=== PATIENT | male | born 1965 | race Two or more races ===

== ENCOUNTER 2025-03-27 18:44 | Observation (INO) | payer MEDICAID, SELFPAY ==
[2025-03-27 18:45] VITALS: BMI 30.8
[2025-03-27 20:31] VITALS: BP 129/88; PULSE 75; RESP 16; TEMP 37.3; O2SAT 97
--- NOTE | 2025-03-27 20:37 | XR_ITS ---
Examination: CT abdomen with intravenous contrast CT pelvis with intravenous contrast 2-D coronal reconstructions 2-D sagittal reconstructions Date and time of exam:March 27, 2025 10:25 PM INDICATIONS: Left lower abdominal pain radiating to the back beginning this morning CTDI: vol (mGy) 8.86 DLP: (mGycm) 574 Technique: Multiple axial sections of the abdomen and pelvis have been obtained. 64 slice high-resolution scanner used. 3 mm axial sections have been obtained, post intravenous injection 30 cc Isovue 300 2-D sagittal, coronal reconstructions obtained. Low dose protocols were performed. One or more of the following dose reduction techniques were used; automated exposure control, adjustment of the mA and/or KV according to patient size, use of iterative reconstruction technique. Findings: Fatty infiltration throughout the liver, no focal liver or splenic lesions Cholelithiasis No pancreatic or adrenal mass Mild left hydronephrosis secondary to 2 mm distal left ureterovesical junction calculus No bladder mass or bladder calculi. Normal appendix The osseous structures are intact Impression: Cholelithiasis Mild left hydronephrosis secondary to 2 mm distal left ureteral vesicle junction calculus
--- NOTE | 2025-03-27 20:38 | PD.EDRME ---
Rapid Medical Screening Exam REPLACED BY [facility] Arrival date/time: 03/27/25 18:44 59M with no significant PMH presents to ED with 2 days of sudden LLQ pain that radiates to back and N/V. Patient denies dysuria/hematuria and diarrhea. Patient has not had a kidney stone before. Chief Complaint: Abdominal Pain Time Seen by Provider: 03/27/25 20:36 Vital signs: Vital Signs Temperature 99.2 F 03/27/25 20:31 Pulse Rate 75 03/27/25 20:31 Respiratory Rate 16 03/27/25 20:31 Blood Pressure 129/88 H 03/27/25 20:31 Pulse Oximetry (%) 97 03/27/25 20:31 Oxygen Delivery Method Room Air 03/27/25 20:31
[2025-03-27] MEDS: KETOROLAC INJ 30 MG/ML VIAL IVP (20:57)
[2025-03-27] MEDS: ONDANSETRON INJ 2 MG/ML INJ 2 ML 4 MG IV (20:58)
[2025-03-27 21:15] LABS: Collection Type, Urine Clean Catch; Lactate (Lactic Acid) 1.5 mMol/L (0.4-2.0); Squamous Epithelial Cell,Urine 0 /hpf (0-5)
[2025-03-27 21:16] LABS: Basophils # (Auto) 0.1 Thou/mm3 (0.0-0.2); Basophils % (Auto) 1 % (0-2.5); Eosinophils # (Auto) 0.1 Thou/mm3 (0.0-0.5); Eosinophils % (Auto) 1 % (0-10); Hematocrit 42.2 % (41.0-53.0); Hemoglobin 14.8 g/dL (13.5-16.0); Immature Granulocytes % (Auto) 0 % (0-0); Immature Granulocytes Auto 0.04 Thou/mm3 (0.00-0.00); Lymphocytes # (Auto) 2.6 Thou/mm3 (1.0-4.8); Lymphocytes % (Auto) 19 % (10-50); Mean Corpuscular HGB Conc 35.1 g/dl (31.0-37.0); Mean Corpuscular Hemoglobin 31.1 pg (25.0-35.0); Mean Corpuscular Volume 89 fL (80-100); Monocytes % (Auto) 7 % (0-12); Neutrophils # (Auto) 9.7 Thou/mm3 (1.8-7.7); Neutrophils % (Auto) 71 % (37-80); Nucleated Red Blood Cell % 0 /100 WBC (0); Platelet Count 266 Thou/mm3 (140-440); RDW Standard Deviation 42.9 fL (35.1-43.9); Red Blood Count 4.76 Miln/mm3 (4.50-5.90); White Blood Count 13.5 Thou/mm3 (3.8-10.6)
[2025-03-27 21:18] LABS: Bilirubin,Urine Negative (Negative); Blood,Urine Negative (Negative); Clarity,Urine Clear (Clear/Hazy); Color,Urine Lt-Yellow (Lt Yel-Yel); Culture Indicated,Urine Not Indicated; Glucose, Urine Negative (Negative); Ketones,Urine Negative (Negative); Leukocyte Esterase,Urine Negative (Negative); Nitrite,Urine Negative (Negative); PH,Urine 5.5 (5.0-7.0); Protein,Urine Negative (Neg - Trace); RBC,Urine 2 /hpf (0-3); Specific Gravity,Urine 1.023 (1.001-1.035); Urobilinogen,Urine Negative mg/dL (0.0-1.0); WBC,Urine 2 /hpf (0-5)
--- NOTE | 2025-03-27 21:34 | EDNOTE_ITS ---
ED Abdominal Pain RME/HPI General Chief Complaint: Abdominal Pain Stated complaint: PAIN LLQ ABD RADIATING TO BACK SINCE THIS AM Time seen by provider: 03/27/25 20:36 Arrival date/time: 03/27/25 18:44 Patient is a 59-year-old male with a history of hypertension. He is here today with left sided abdominal pain worse in the left lower quadrant that developed this morning. He has nausea but no vomiting. He has no changes in stool. He states he has not had this before. He has no past surgical history. He denies any flank pain or dysuria. He has no urinary complaints. He has had no falls or injuries. He has had no near syncopal episodes. His last meal was breakfast this morning. He has no other acute complaints. Source: patient and family Mode of arrival: ambulatory Limitations: no limitations RME / HPI RME / HPI narrative: 03/27/25 18:44 59M with no significant PMH presents to ED with 2 days of sudden LLQ pain that radiates to back and N/V. Patient denies dysuria/hematuria and diarrhea. Patient has not had a kidney stone before. Related Data Previous Rx's ?Medication ?Instructions ?Recorded tamsulosin 0.4 mg capsule (Flomax) 0.4 mg PO QDAY #30 caps 03/27/25 Allergies Allergy/AdvReac Type Severity Reaction Status Date / Time No Known Allergies Allergy Verified 03/27/25 18:47 Review of Systems Review of Systems Systems Reviewed: All systems reviewed, normal except as documented ED Exam General Limitations: Present no limitations General appearance: Present alert and in distress Head Head exam: Present atraumatic Eye Eye exam: Present normal appearance, PERRL and EOMI ENT ENT exam: Present normal exam, normal oropharynx and mucous membranes moist Neck Neck exam: Present normal inspection, full ROM and trachea midline Chest Chest inspection: Present normal inspection and symmetric chest wall rise Respiratory Respiratory exam: Present normal lung sounds bilaterally Cardiovascular Cardiovascular exam: Present regular rate, normal rhythm and normal heart sounds Abdominal Exam Abdominal exam: Present soft, distention, tenderness, normal bowel sounds and o ther (Diffuse tympany); Absent guarding or rebound Extremities Exam Extremities exam: Present normal inspection and full ROM Back Exam Back exam: Present normal inspection and full ROM Neurological Exam Neurological exam: Present alert, oriented X3 and CN II-XII intact Psychiatric Psychiatric exam: Present normal affect and normal mood Skin Skin exam: Present warm, dry, intact and normal color Course Quality Measures none (But if) Orders Category Date Time Status CT Screening NOW Care 03/27/25 20:37 Active Insert IV NOW Care 03/27/25 20:[address] abdomen pelvis w con Stat Exams 03/27/25 20:37 Completed CBC Stat Lab 03/27/25 21:03 Completed CMP [Comprehensive Metabolic Panel] Stat Lab 03/27/25 21:03 Completed Lactate (Lactic Acid) Stat Lab 03/27/25 21:03 Completed Lipase Stat Lab 03/27/25 21:03 Completed Procalcitonin Stat Lab 03/27/25 21:03 Completed Urinalysis, C/S if Indicated Stat Lab 03/27/25 21:03 Completed Ketorolac Inj [Toradol Inj] Med 03/27/25 20:37 Discontinued 30 mg IVP X1 ONE Morphine Inj Med 03/27/25 21:33 Discontinued 4 mg IVP X1 ONE Ondansetron Inj [Zofran Inj] Med 03/27/25 20:37 Discontinued 4 mg IV X1 ONE Sodium Chloride 0.9% 1000 ml [Ns] 1,000 ml Med 03/27/25 23:03 Active IV 999 mls/hr Sodium Chloride 0.9% 1000 ml [Ns] 1,000 ml Med 03/27/25 23:26 Ordered IV 999 mls/hr Tamsulosin HCl [Flomax] Med 03/27/25 23:29 Once 0.4 mg PO X1 ONE Vital Signs Vital signs: Vital Signs Temperature 99.2 F 03/27/25 20:31 Pulse Rate 75 03/27/25 20:31 Respiratory Rate 16 03/27/25 20:31 Blood Pressure 129/88 H 03/27/25 20:31 Pulse Oximetry (%) 97 03/27/25 20:31 Oxygen Delivery Method Room Air 03/27/25 20:31 Abdominal Pain MDM MDM Narrative MDM Narrative:: Patient is a 59-year-old male who is here today for a 1 day history of left side abdominal pain and left lower quadrant pain. He has nausea but no vomiting. No urinary complaints. He is uncomfortable. But nontoxic-appearing on exam. Vital signs remained stable The ER course. Workup reveals a mild leukocytosis at 13,000 and a RODNEY with creatinine 1.9. CT abdomen pelvis was obtained which reveals a left-sided 2 m, ureter stone near the UVJ. Patient received single bolus of fluids. After results were obtained, a second bolus of fluids were requested in addition to Flomax. His pain has been controlled here with Toradol and morphine. At shift change, patient signed out to attending ER physician who will monitor the patient's creatinine to consider discharge versus admission. So Patient data External records reviewed:: None Clinical information provided by:: patient and family Social determinants that could affect healthcare access:: none Patient has the following chronic illnesses:: HTN How is presenting disease/condition affected by chronic disease/condition?: uneffected by Evaluation data The following diagnostics were reviewed and interpreted by me:: lab results (Mild leukocytosis at 13.5 thousand, patient has RODNEY with a creatinine 1.9.) and radiology exam(s) Lab and/or radiology exams considered but not ordered:: 2mm urethral stone at the left UVJ Interpretation Summary: to metering, left ureteral stone with RODNEY Medications / Prescriptions Medications or Prescriptions considered but not ordered:: n/a Medication administrations:: Medication Administration History Sodium Chloride (Ns) 1,000 mls @ 999 mls/hr IV .Q1H1M ONE Stop: 03/28/25 00:03 Sodium Chloride (Ns) 1,000 mls @ 999 mls/hr IV .Q1H1M ONE Stop: 03/28/25 00:26 Discontinued Medications Ketorolac Tromethamine (Ketorolac Inj 30 Mg/Ml Vial) 30 mg IVP X1 ONE Stop: 03/27/25 20:38 Last Admin: 03/27/25 20:57 Dose: 30 mg Documented By: ANTONINA Morphine Sulfate (Morphine Sulf Inj 10 Mg/Ml Vial) 4 mg IVP X1 ONE Stop: 03/27/25 21:34 Last Admin: 03/27/25 21:48 Dose: 4 mg Documented By: ANTONINA Ondansetron HCl (Ondansetron Inj 2 Mg/Ml Inj 2 Ml) 4 mg IV X1 ONE; Protocol Stop: 03/27/25 20:38 Last Admin: 03/27/25 20:58 Dose: 4 mg Documented By: ANTONINA see above Consultations Consultation(s) initiated? (list below): No Diagnosis Differential diagnosis abdominal pain: abdominal pain, calculus of kidney, constipation and diverticulitis Most likely diagnosis given after review of the tests above:: Urethral stone with RODNEY Admission Indicated Admission indicated?: not indicated Admission Request Was there a request for admission?: No Disposition Plan Disposition Plan: other (specify) (pending) Discharge Plan Prescriptions/Referrals Prescriptions/Med Rec: New tamsulosin [Flomax] 0.4 mg capsule 0.4 mg PO QDAY Qty: 30 0RF Referrals: No Primary/Family,Physician [Primary Care Provider] - In 1 week Problem List Clinical Impression: Ureterolithiasis, RODNEY (acute kidney injury) Patient/Caregiver Discharge Instructions Education Materials: Acute Kidney Failure Dc, ED Kidney Stone w/ Colic Print Language: Kiswahili
[2025-03-27] MEDS: MORPHINE SULF INJ 10 MG/ML VIAL 4 MG IVP ×2 (21:48→23:50)
[2025-03-27 21:49] LABS: Alanine Aminotransferase 43 U/L (10-49); Albumin, Serum 4.8 gm/dL (3.5-5.0); Albumin/Globulin Ratio 1.4 (1.2-2.2); Alkaline Phosphatase 71 U/L (46-116); Anion Gap 10 (7-16); Aspartate Amino Transferase 35 U/L (0-34); BUN/Creatinine Ratio 9 Ratio (12-20); Bilirubin,Total 1.2 mg/dL (0.3-1.2); Blood Urea Nitrogen 17 mg/dL (9-23); Calcium 10.5 mg/dL (8.3-10.6); Calcium (Corrected) 10.5 mg/dL (8.5-10.1); Chloride 104 mMol/L (98-107); Creatinine (Component) 1.9 mg/dL (0.6-1.3); Estimated Creatinine Clearance 50.2 mL/min (>60); Globulin 3.4 gm/dL (2.3-3.5); Glucose 94 mg/dL (74-106); Lipase 57 U/L (12-53); Osmolality,Calculated 275 (275-295); Potassium 4.3 mMol/L (3.4-5.1); Procalcitonin 0.08 ng/ml (0.0-0.49); Sodium 137 mMol/L (136-145); Total Protein 8.2 gm/dL (5.7-8.2); eGFR 41 See Note
[2025-03-27] MEDS: TAMSULOSIN HCL 0.4 MG CAPSULE PO (23:49)
[2025-03-27] MEDS: SODIUM CHLORIDE 0.9% 1000 ML 1,000 ML 999 ML IV ×2 (23:51)
[2025-03-28] VITALS (7 sets, daily range): BP systolic 119–140; BP diastolic 80–97; PULSE 68–83; RESP 16–18; TEMP 36.2–37.3; O2SAT 93–97; BMI 32.1
[2025-03-28 01:02] LABS: Alanine Aminotransferase 37 U/L (10-49); Albumin, Serum 3.9 gm/dL (3.5-5.0); Albumin/Globulin Ratio 1.3 (1.2-2.2); Alkaline Phosphatase 62 U/L (46-116); Anion Gap 7 (7-16); Aspartate Amino Transferase 38 U/L (0-34); BUN/Creatinine Ratio 6 Ratio (12-20); Bilirubin,Total 1.1 mg/dL (0.3-1.2); Blood Urea Nitrogen 11 mg/dL (9-23); Calcium 8.8 mg/dL (8.3-10.6); Calcium (Corrected) 8.9 mg/dL (8.5-10.1); Carbon Dioxide 21.7 mMol/L (20.0-31.0); Chloride 110 mMol/L (98-107); Creatinine (Component) 1.8 mg/dL (0.6-1.3); Globulin 3.1 gm/dL (2.3-3.5); Glucose 84 mg/dL (74-106); Osmolality,Calculated 275 (275-295); Potassium 4.5 mMol/L (3.4-5.1); Sodium 139 mMol/L (136-145); eGFR 43 See Note
--- NOTE | 2025-03-28 02:14 | PD.EDADDENDU ---
Emergency Room Addendum Addendum Narrative: 2300: Care assumed from Nicky (emergency mid-level provider). Past medical, surgical, social and family history reviewed. Vitals and home medications reviewed. Results and treatment plan discussed. I will assume the care of the patient at this time and will follow the patient, pending 0248: Dr. Canales made aware of the patient?s HPI, PMHx, lab and/or radiology results. Treatment plan was discussed. Will admit for further evaluation and management. Accepts patient for admission. 0420: Patient admitted and transported upstairs.
--- NOTE | 2025-03-28 03:11 | ESHP_ITS ---
<Statement entered by Sarahi Bauman MD - 03/28/25 06:57> I Sarahi Bauman MD reviewed the note and agree with the resident's assessment & plan with exceptions as below. I have personally reviewed labs, imaging, home meds/prior records, examined the patient, formulated and discussed management plan with the IM team. A 59-year-old M with fatty liver presented to ED with flank pain radiating to the back and noted to have mild leukocytosis and elevated creatinine consistent with RODNEY left ureteral stone with left-sided hydronephrosis. UA is clean without any evidence of blood/infection. CT abdomen/pelvis did not reveal any concerning/findings of pancreatitis. Will provide aggressive IV hydration, started on tamsulosin 4 mg p.o. twice daily, repeat CBC and CMP to evaluate for renal function. Will consult urology for hydronephrosis. Documentation for date of: 03/28/25 HPI History of Present Illness Chief complaint: Left lower quadrant pain History of present illness: 59-year-old male with past medical history of hypertension presented to the ED due to left lower quadrant pain. Patient describes pain as 10 out of 10 radiating to the back that gets worse with ambulation and sitting up. Patient describes the pain as waxing and waning. Patient has never had similar symptoms before. Patient states he does not usually go to the hospital and is usually healthy and does not need to see the doctor too often. Patient denies fevers, chills, shortness of breath, chest pain, nausea, vomiting, recent travel, sick contacts. In the ER patient was found to have RODNEY abdominal CT found to have 2 millimeter stone on the left was given IV fluid and on repeat renal panel showed minimal improvement ED requested admission. ED course: ED vitals: BP 129/88, HR 75, temperature 99.2 ?F, saturating 97% on room air ED labs: Leukocytosis, creatinine 1.8, EGFR 43, AST 38, lipase 57, UA negative for UTI. CT abdomen pelvis shows 2 mm stone with left hydronephrosis. In the ED patient received 2 L NS boluses, Zofran, morphine, tamsulosin PMHx: As above SX Hx: None Social Hx: Social drinking, denies cigarette use, denies illicit substances including THC FH X: Unknown Review of Systems Review of Systems Systems Reviewed: All systems reviewed, normal except as documented Narrative Review of Systems: All 12 systems were reviewed and found negative unless otherwise stated in the HPI. Exam Vital Signs Temp Pulse Resp BP Pulse Ox O2 Del Method 99.1 F 77 16 131/97 H 95 Room Air 03/28/25 02:14 03/28/25 02:14 03/28/25 02:14 03/28/25 02:14 03/28/25 02:14 03/28/25 02:14 Narrative Exam Physical Exam GENERAL: NAD, AAOx3 HEENT: Moist mucosa. Eyes open, symmetrical, & clear CARDIO: Heart RRR, no obvious murmurs PULM: No noted coughing/dyspnea CTA B/L, no R/W/R GI: Abdomen soft, nondistended, left lower quadrant pain to palpation, bowel sounds appreciated SKIN/MSK/EXT: No wounds/rashes/edema/amputations, no pain on palpation. Pedal pulses present B/L NEURO: AAOx3, no focal neuro deficits, able to move all 4 extremities Results: Labs 03/27/25 21:03 03/28/25 00:24 Labs: Short CBC 03/27/25 Range/Units 21:03 WBC 13.5 H (3.8-10.6) Thou/mm3 Hgb 14.8 (13.5-16.0) g/dL Hct 42.2 (41.0-53.0) % Plt Count 266 (140-440) Thou/mm3 [facility] 03/27/25 03/28/25 21:03 00:24 Sodium 137 139 Potassium 4.3 4.5 Chloride 104 110 H Carbon Dioxide 23.0 21.7 BUN 17 11 Creatinine 1.9 H 1.8 H Glucose 94 84 Calcium 10.5 8.8 D Liver Function 03/27/25 03/28/25 Range/Units 21:03 00:24 Total Bilirubin 1.2 1.1 (0.3-1.2) mg/dL AST 35 H 38 H (0-34) U/L ALT 43 37 (10-49) U/L Alkaline Phosphatase 71 62 (46-116) U/L Albumin 4.8 3.9 D (3.5-5.0) gm/dL Urine 03/27/25 Range/Units 21:03 Urine Color Lt-Yellow (Lt Yel-Yel) Urine Clarity Clear (Clear/Hazy) Urine pH 5.5 (5.0-7.0) Ur Specific [place] 1.023 (1.001-1.035) Urine Protein Negative (Neg - Trace) Urine Glucose (UA) Negative (Negative) Quality Measures Quality Measures none (But if) Medications Home Medications and Allergies Allergies Allergy/AdvReac Type Severity Reaction Status Date / Time No Known Allergies Allergy Verified 03/27/25 18:47 Visit Medications Acetaminophen (Acetaminophen 325 Mg Tablet) 650 mg PO Q6H PRN PRN Reason: Fever >99.5 Stop: 04/27/25 03:06 Acetaminophen (Acetaminophen 325 Mg Tablet) 1,000 mg PO Q6H PRN PRN Reason: PAIN SCALE 1-3 (mild Stop: 04/27/25 03:06 Sodium Chloride (Ns) 1,000 mls @ 100 mls/hr IV .Q10H MAGGIE Stop: 04/27/25 03:14 Morphine Sulfate (Morphine Sulf Inj 10 Mg/Ml Vial) 2 mg IVP Q2H PRN PRN Reason: PAIN SCALE 4-10(Mod-Sev Stop: 04/02/25 03:06 Ondansetron HCl (Ondansetron Inj 2 Mg/Ml Inj 2 Ml) 4 mg IVP Q6H PRN; Protocol PRN Reason: NAUSEA OR VOMITING Stop: 04/27/25 03:06 Discontinued Medications Sodium Chloride (Ns) 1,000 mls @ 999 mls/hr IV .Q1H1M ONE Stop: 03/28/25 00:03 Last Infusion: 03/28/25 01:08 Dose: Infused Sodium Chloride (Ns) 1,000 mls @ 999 mls/hr IV .Q1H1M ONE Stop: 03/28/25 00:26 Last Infusion: 03/28/25 01:08 Dose: Infused Ketorolac Tromethamine (Ketorolac Inj 30 Mg/Ml Vial) 30 mg IVP X1 ONE Stop: 03/27/25 20:38 Last Admin: 03/27/25 20:57 Dose: 30 mg Morphine Sulfate (Morphine Sulf Inj 10 Mg/Ml Vial) 4 mg IVP X1 ONE Stop: 03/27/25 21:34 Last Admin: 03/27/25 21:48 Dose: 4 mg Morphine Sulfate (Morphine Sulf Inj 10 Mg/Ml Vial) 4 mg IVP X1 ONE Stop: 03/27/25 23:31 Last Admin: 03/27/25 23:50 Dose: 4 mg Ondansetron HCl (Ondansetron Inj 2 Mg/Ml Inj 2 Ml) 4 mg IV X1 ONE; Protocol Stop: 03/27/25 20:38 Last Admin: 03/27/25 20:58 Dose: 4 mg Tamsulosin HCl (Tamsulosin Hcl 0.4 Mg Capsule) 0.4 mg PO X1 ONE Stop: 03/27/25 23:30 Last Admin: 03/27/25 23:49 Dose: 0.4 mg Assessment & Plan Plan 59-year-old male with past medical history of hypertension who presents to the ED due to left lower quadrant pain radiating to the back. Patient will be admitted for RODNEY. #Acute Kidney injury Patient presented with left lower quadrant pain radiating to the back. Likely in the setting of 2 mm stone with hydronephrosis as per CT scan In the ED patient received 2 L NS bolus, morphine, tamsulosin ? on IVFs ? Avoid RUBENS or ARB's ? Avoid nephrotoxins ? Renally dose medications ? Tamsulosin ? Pain control morphine and Tylenol ? Strain urine for calculus #Hypertension Currently normotensive can resume antihypertensive at a later time Patient at home takes losartan ? Hold losartan in setting of RODNEY Health Maintenance: Disposition: MedSurg, observation Fluids: NS Feeding: Low-sodium diet Thrombo prophylaxis: SCDs Gastric Ulcer prophylaxis: Not indicated CODE STATUS: Full code Case discussed with my attending Dr. Mitul Nj MD PGY-1 Disclaimer: Despite multiple revisions, due to the dictation software being used, the document bellow may not be free of grammatical errors including phonetic/typographic errors. However, this does not deter from our commitment to providing health care in the patient's best interest in mind.
[2025-03-28] MEDS: SODIUM CHLORIDE 0.9% 1000 ML 1,000 ML 100 ML IV ×2 (03:30→16:26)
[2025-03-28 04:32] LABS: Basophils # (Auto) 0.1 Thou/mm3 (0.0-0.2); Basophils % (Auto) 0 % (0-2.5); Eosinophils # (Auto) 0.1 Thou/mm3 (0.0-0.5); Eosinophils % (Auto) 1 % (0-10); Hematocrit 41.5 % (41.0-53.0); Immature Granulocytes % (Auto) 0 % (0-0); Immature Granulocytes Auto 0.05 Thou/mm3 (0.00-0.00); Lymphocytes # (Auto) 1.9 Thou/mm3 (1.0-4.8); Lymphocytes % (Auto) 16 % (10-50); Mean Corpuscular HGB Conc 33.7 g/dl (31.0-37.0); Mean Corpuscular Hemoglobin 30.9 pg (25.0-35.0); Mean Corpuscular Volume 92 fL (80-100); Monocytes # (Auto) 1.1 Thou/mm3 (0.0-0.8); Monocytes % (Auto) 9 % (0-12); Neutrophils # (Auto) 8.9 Thou/mm3 (1.8-7.7); Neutrophils % (Auto) 74 % (37-80); Nucleated Red Blood Cell % 0 /100 WBC (0); Platelet Count 227 Thou/mm3 (140-440); RDW Standard Deviation 44.8 fL (35.1-43.9); Red Blood Count 4.53 Miln/mm3 (4.50-5.90); White Blood Count 12.1 Thou/mm3 (3.8-10.6)
[2025-03-28 04:46] LABS: Alanine Aminotransferase 36 U/L (10-49); Albumin/Globulin Ratio 1.4 (1.2-2.2); Alkaline Phosphatase 65 U/L (46-116); Anion Gap 8 (7-16); Aspartate Amino Transferase 31 U/L (0-34); BUN/Creatinine Ratio 8 Ratio (12-20); Bilirubin,Total 1.4 mg/dL (0.3-1.2); Blood Urea Nitrogen 14 mg/dL (9-23); Calcium 8.6 mg/dL (8.3-10.6); Calcium (Corrected) 8.6 mg/dL (8.5-10.1); Carbon Dioxide 26.4 mMol/L (20.0-31.0); Chloride 108 mMol/L (98-107); Creatinine (Component) 1.7 mg/dL (0.6-1.3); Estimated Creatinine Clearance 56.2 mL/min (>60); Globulin 2.8 gm/dL (2.3-3.5); Glucose 109 mg/dL (74-106); Magnesium 1.7 mg/dL (1.6-2.6); Osmolality,Calculated 284 (275-295); Potassium 3.9 mMol/L (3.4-5.1); Sodium 142 mMol/L (136-145); Total Protein 6.8 gm/dL (5.7-8.2); eGFR 46 See Note
[2025-03-28 08:12] LABS: Collection Type, Urine Voided; Squamous Epithelial Cell,Urine 0 /hpf (0-5)
[2025-03-28 08:28] LABS: Bilirubin,Urine Negative (Negative); Blood,Urine Trace (Negative); Clarity,Urine Clear (Clear/Hazy); Color,Urine Colorless (Lt Yel-Yel); Glucose, Urine Negative (Negative); Ketones,Urine Negative (Negative); Leukocyte Esterase,Urine Negative (Negative); Nitrite,Urine Negative (Negative); PH,Urine 5.5 (5.0-7.0); Protein,Urine Negative (Neg - Trace); RBC,Urine 1 /hpf (0-3); Specific Gravity,Urine 1.012 (1.001-1.035); Urobilinogen,Urine Negative mg/dL (0.0-1.0); WBC,Urine 2 /hpf (0-5)
--- NOTE | 2025-03-28 08:49 | EKG_ITS ---
[facility] Test Date: 2025-03-28 Pat Name: KRISHNA MORENO [facility] Radiotelegraphist: SURINDER : 1965 Requested By: Emilie Moreno Order Number: [id number] Reading MD: Emilie Moreno Measurements Intervals [place] Rate: 76 P: 30 RI: 216 QRS: 30 QRSD: 102 T: 30 QT: 375 QTc: 422 Interpretive Statements SINUS RHYTHM WITH FIRST DEGREE AV BLOCK No previous ECG available for comparison /[id number]/S0/[id number].pdf
[2025-03-28] MEDS: TAMSULOSIN HCL 0.4 MG CAPSULE PO (09:02)
--- NOTE | 2025-03-28 09:24 | PC.SS ---
Follow up note: On IV fluids.
--- NOTE | 2025-03-28 09:51 | XR_ITS ---
Examination: Abdomen sonogram, Limited Date and time of exam: March 28, 2025 1126 hours INDICATIONS: Cholelithiasis on CT abdomen study yesterday, abdominal pain today Technique: Real-time pitts scale transabdominal sonographic images of the upper abdomen obtained. Findings: Cholelithiasis, gallbladder wall 0.3 cm no edema Common bile duct 0.4 cm Pancreas obscured by bowel gas Liver 14.9 cm fatty infiltration smooth contour Normal hepatopedal portal venous flow Patent IVC IMPRESSION: Cholelithiasis, negative for cholecystitis
[2025-03-28] MEDS: POLYETHYLENE GLYCOL 17 GM PACKET 34 GM PO (10:45)
--- NOTE | 2025-03-28 11:20 | ESPR_ITS ---
<Statement entered by Prince Mckeon MD - 04/03/25 08:54> I reviewed above note and agree with findings and plans. I have also personally examined the patient with medicine team and went over assessment and plan with medical team including purchasing internship and resident physician. Documentation for date of: 03/28/25 Subjective Subjective Interval history: Patient seen and examined at bedside. Patient admitted overnight for RODNEY secondary to nephrolithiasis. Seen at bedside, has no current complaints, reports that pain has resolved and improved remarkably. Complains of some constipation, started on MiraLAX. Labs and vitals reviewed, elevated bilirubin noted, liver ultrasound ordered. Liver ultrasound shows cholelithiasis, negative for cholecystitis. Will continue IV fluids for now, monitor renal function in a.m. Will defer urology consult, patient had small 2 mm calculus at ureteral vesicle junction, has no current pain. Exam Vital Signs Temp Pulse Resp BP Pulse Ox O2 Del Method 97.1 F 72 17 140/80 H 95 Room Air 03/28/25 08:00 03/28/25 08:00 03/28/25 08:00 03/28/25 08:00 03/28/25 08:00 03/28/25 08:00 Narrative Exam Physical Exam General: Awake and in no acute distress. Conversational and non-toxic appearing. HEENT: Normocephalic, atraumatic, mucous membranes moist. Heart: Regular rate and rhythm, no murmurs. Lungs: Clear to auscultation with no wheezing or crackles. Abdomen: Soft, nondistended, nontender, positive bowel sounds. ?No guarding or rebound tenderness. Neurologic: Alert and oriented x3, no gross neurological deficit, and patient able to move all 4 extremities. Extremities: No edema. Skin: No rash or ecchymoses. Objective Labs 03/28/25 04:20 03/28/25 04:20 Labs: Laboratory Results - last 24 hr 03/27/25 03/28/25 03/28/25 21:03 00:24 04:20 WBC 13.5 H 12.1 H RBC 4.76 4.53 Hgb 14.8 14.0 Hct 42.2 41.5 MCV 89 92 MCH 31.1 30.9 MCHC 35.1 33.7 RDW Std Deviation 42.9 44.8 H Plt Count 266 227 D Neut % (Auto) 71 74 Lymph % (Auto) 19 16 [place] % (Auto) 7 9 Eos % (Auto) 1 1 Baso % (Auto) 1 0 Neut # (Auto) 9.7 H 8.9 H Lymph # (Auto) 2.6 1.9 [place] # (Auto) 1.0 H 1.1 H Eos # (Auto) 0.1 0.1 Baso # (Auto) 0.1 0.1 Immature Gran # (Auto) 0.04 H 0.05 H Absolute Nucleated RBC 0.00 0.00 Immature Gran % 0 0 Nucleated RBC % 0 0 Sodium 137 139 142 Potassium 4.3 4.5 3.9 D Chloride 104 110 H 108 H Carbon Dioxide 23.0 21.7 26.4 Anion Gap 10 7 8 BUN 17 11 14 Creatinine 1.9 H 1.8 H 1.7 H Estim Creat Clear Calc 50.2 L 53.0 L 56.2 L eGFR 41 L 43 L 46 L BUN/Creatinine Ratio 9 L 6 L 8 L Glucose 94 84 109 H Calculated Osmolality 275 275 284 Lactic Acid 1.5 Calcium 10.5 8.8 D 8.6 Corrected Calcium 10.5 H 8.9 D 8.6 Magnesium 1.7 Total Bilirubin 1.2 1.1 1.4 H AST 35 H 38 H 31 ALT 43 37 36 Alkaline Phosphatase 71 62 65 Total Protein 8.2 7.0 6.8 Albumin 4.8 3.9 D 4.0 Globulin 3.4 3.1 2.8 Albumin/Globulin Ratio 1.4 1.3 1.4 Lipase 57 H Procalcitonin 0.08 Ur Collection Type Clean Catch Urine Color Lt-Yellow Urine Clarity Clear Urine pH 5.5 Ur Specific [place] 1.023 Urine Protein Negative Urine Glucose (UA) Negative Urine Ketones Negative Urine Blood Negative Urine Nitrite Negative Urine Bilirubin Negative Urine Urobilinogen (Auto) Negative Ur Leukocyte Esterase Negative Urine RBC 2 Urine WBC 2 Ur Squamous Epith Cells 0 Urine Bacteria None Ur Culture Indicated? Not Indicated 03/28/25 07:35 WBC RBC Hgb Hct MCV MCH MCHC RDW Std Deviation Plt Count Neut % (Auto) Lymph % (Auto) [place] % (Auto) Eos % (Auto) Baso % (Auto) Neut # (Auto) Lymph # (Auto) [place] # (Auto) Eos # (Auto) Baso # (Auto) Immature Gran # (Auto) Absolute Nucleated RBC Immature Gran % Nucleated RBC % Sodium Potassium Chloride Carbon Dioxide Anion Gap BUN Creatinine Estim Creat Clear Calc eGFR BUN/Creatinine Ratio Glucose Calculated Osmolality Lactic Acid Calcium Corrected Calcium Magnesium Total Bilirubin AST ALT Alkaline Phosphatase Total Protein Albumin Globulin Albumin/Globulin Ratio Lipase Procalcitonin Ur Collection Type Voided Urine Color Colorless A Urine Clarity Clear Urine pH 5.5 Ur Specific [place] 1.012 Urine Protein Negative Urine Glucose (UA) Negative Urine Ketones Negative Urine Blood Trace Urine Nitrite Negative Urine Bilirubin Negative Urine Urobilinogen (Auto) Negative Ur Leukocyte Esterase Negative Urine RBC 1 Urine WBC 2 Ur Squamous Epith Cells 0 Urine Bacteria None Ur Culture Indicated? Quality Measures Quality Measures none Assessment & Plan Assessment Current Active Medications: Generic Name Dose Route Start Last Admin Trade Name Freq PRN Reason Stop Dose Admin Acetaminophen 650 mg 03/28/25 03:07 Acetaminophen 325 Mg Tablet PO 04/27/25 03:06 Q6H PRN Fever >99.5 Acetaminophen 1,000 mg 03/28/25 03:07 Acetaminophen 325 Mg Tablet PO 04/27/25 03:06 Q6H PRN PAIN SCALE 1-3 (mild Sodium Chloride 1,000 mls @ 100 mls/hr 03/28/25 03:15 03/28/25 03:30 Ns IV 04/27/25 03:14 100 mls/hr .Q10H MAGGIE Administration Morphine Sulfate 2 mg 03/28/25 03:07 Morphine Sulf Inj 10 Mg/Ml Vial IVP 04/02/25 03:06 Q2H PRN PAIN SCALE 4-10(Mod-Sev Ondansetron HCl 4 mg 03/28/25 03:07 Ondansetron Inj 2 Mg/Ml Inj 2 Ml IVP 04/27/25 03:06 Q6H PRN NAUSEA OR VOMITING Protocol Polyethylene Glycol 34 gm 03/28/25 10:00 03/28/25 10:45 Polyethylene Glycol 17 Gm Packet PO 04/27/25 09:59 34 gm QDAY MAGGIE Administration Tamsulosin HCl 0.4 mg 03/28/25 09:00 03/28/25 09:02 Tamsulosin Hcl 0.4 Mg Capsule PO 04/27/25 08:59 0.4 mg QDAY MAGGIE Administration Plan Mr Han is a 59-year-old male with past medical history of hypertension who presents to the ED due to left lower quadrant pain radiating to the back. Patient admitted for RODNEY. #Acute Kidney injury secondary to #Ureterovesical junction 2 mm renal calculus Patient presented with left lower quadrant pain radiating to the back. Likely in the setting of 2 mm stone with hydronephrosis as per CT scan In the ED patient received 2 L NS bolus, morphine, tamsulosin Plan: ?Continue maintenance IV fluids ?Will hold RUBENS/ARB ?Avoid nephrotoxins ?Renally dose medications ?Continue tamsulosin ?Pain control morphine and Tylenol ?Strain urine for calculus #Cholelithiasis CT scan shows Cholelithiasis Ordered liver ultrasound shows cholelithiasis, no evidence of cholecystitis. Elevated bilirubin noted, currently patient has no pain - Asymptomatic, will observe for now. - Follow lipid panel in a.m. #Hypertension Blood pressure within normal limits, will hold off of antihypertensives for now Patient at home takes losartan and amlodipine Will resume blood pressure medications as needed Health Maintenance: Disposition: Will discharge him a.m., pending improvement of renal function Fluids: NS maintenance fluid Feeding: Low-sodium diet Thrombo prophylaxis: SCDs Gastric Ulcer prophylaxis: Not indicated CODE STATUS: Full code Case discussed with Attending Dr. Mckeon. Emilie Han PGY1 Disclaimer: This note was dictated by speech recognition. Minor errors in information systems security analyst may be present due to voice recognition software.
--- NOTE | 2025-03-28 15:58 | PC.SS ---
SS met with patient regarding his d/c plan. Pt is alert/oriented. Pt was admitted for LLQ Pain. Pt confirmed demographic and contact information is correct on facesheet. Pt resides with and kids. Pt ambulates independently without assistance or DME. Pt is ok with all ADLs. 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 Patient?s pharmacy of choice is [facility]. Pt named his , Basia Jerez medical decision maker if he is unable. Patient?s choice is to return home upon d/c. Pt states he is not diabetic and is not on dialysis. Pt states he followed up with PCP in February. D/C plan: Return home Next of Kin: Basia Jerez, , phone# [phone] PCP: García Gayle in [place] Address: Correct on facesheet
[2025-03-28] MEDS: MORPHINE SULF INJ 10 MG/ML VIAL 2 MG IVP (17:43)
--- NOTE | 2025-03-28 18:36 | PC.NURSE ---
Pt complained of 10 out of 10 pain. Gave 2 mg morphine. Pt still complaining of 10 out of [address] Han. Dr. han will put in new order for toradol.
[2025-03-28] MEDS: KETOROLAC INJ 30 MG/ML VIAL IVP (22:06)
[2025-03-29] VITALS (7 sets, daily range): BP systolic 126–145; BP diastolic 77–97; PULSE 79–100; RESP 16–17; TEMP 36.1–36.4; O2SAT 93–97
[2025-03-29] MEDS: SODIUM CHLORIDE 0.9% 1000 ML 1,000 ML 100 ML IV ×3 (02:34→23:34)
[2025-03-29 05:44] LABS: Basophils # (Auto) 0.1 Thou/mm3 (0.0-0.2); Basophils % (Auto) 1 % (0-2.5); Eosinophils # (Auto) 0.3 Thou/mm3 (0.0-0.5); Eosinophils % (Auto) 4 % (0-10); Hematocrit 39.3 % (41.0-53.0); Hemoglobin 13.8 g/dL (13.5-16.0); Immature Granulocytes % (Auto) 1 % (0-0); Immature Granulocytes Auto 0.06 Thou/mm3 (0.00-0.00); Lymphocytes # (Auto) 2.3 Thou/mm3 (1.0-4.8); Lymphocytes % (Auto) 26 % (10-50); Mean Corpuscular HGB Conc 35.1 g/dl (31.0-37.0); Mean Corpuscular Hemoglobin 31.7 pg (25.0-35.0); Mean Corpuscular Volume 90 fL (80-100); Monocytes # (Auto) 0.7 Thou/mm3 (0.0-0.8); Monocytes % (Auto) 8 % (0-12); Neutrophils # (Auto) 5.3 Thou/mm3 (1.8-7.7); Neutrophils % (Auto) 61 % (37-80); Nucleated Red Blood Cell % 0 /100 WBC (0); Platelet Count 213 Thou/mm3 (140-440); Red Blood Count 4.36 Miln/mm3 (4.50-5.90); White Blood Count 8.7 Thou/mm3 (3.8-10.6)
[2025-03-29 06:02] LABS: Glucose Estimated Average 105 mg/dL (80-131); Hemoglobin A1C 5.3 % Hgb (4.8-6.0)
[2025-03-29 06:07] LABS: Alanine Aminotransferase 35 U/L (10-49); Albumin, Serum 3.8 gm/dL (3.5-5.0); Albumin/Globulin Ratio 1.4 (1.2-2.2); Alkaline Phosphatase 59 U/L (46-116); Anion Gap 9 (7-16); Aspartate Amino Transferase 30 U/L (0-34); BUN/Creatinine Ratio 6 Ratio (12-20); Bilirubin,Total 1.1 mg/dL (0.3-1.2); Blood Urea Nitrogen 7 mg/dL (9-23); Calcium 8.9 mg/dL (8.3-10.6); Calcium (Corrected) 9.1 mg/dL (8.5-10.1); Carbon Dioxide 23.9 mMol/L (20.0-31.0); Cardiac Risk Estimate 3.7 RATIO (4.0-6.7); Chloride 108 mMol/L (98-107); Cholesterol 140 mg/dL (132-200); Creatinine (Component) 1.2 mg/dL (0.6-1.3); Estimated Creatinine Clearance 81.1 mL/min (>60); Globulin 2.8 gm/dL (2.3-3.5); Glucose 95 mg/dL (74-106); HDL Cholesterol 38 mg/dL (40-60); LDL Cholesterol,Calculated 76 mg/dL (0-130); Magnesium 1.8 mg/dL (1.6-2.6); Osmolality,Calculated 279 (275-295); Phosphorous 2.8 mg/dL (2.4-5.1); Sodium 141 mMol/L (136-145); Total Protein 6.6 gm/dL (5.7-8.2); Triglycerides 132 mg/dL (30-150); eGFR > 60 See Note
[2025-03-29] MEDS: POLYETHYLENE GLYCOL 17 GM PACKET 34 GM PO (08:20)
[2025-03-29] MEDS: amLODIPine BESYLATE 5 MG TABLET PO (08:20)
[2025-03-29] MEDS: TAMSULOSIN HCL 0.4 MG CAPSULE PO (08:20)
[2025-03-29] MEDS: MORPHINE SULF INJ 10 MG/ML VIAL 2 MG IVP (08:54)
[2025-03-29] MEDS: KETOROLAC INJ 30 MG/ML VIAL IVP (11:35)
--- NOTE | 2025-03-29 14:28 | ESPR_ITS ---
<Statement entered by Prince Mckeon MD - 04/03/25 08:56> I reviewed above note and agree with findings and plans. I have also personally examined the patient with medicine team and went over assessment and plan with medical team including international marketing executive and resident physician. Documentation for date of: 03/29/25 Subjective Subjective Interval history: Patient seen and examined at bedside. Patient continues to complain of pain, requiring IV pain medication, urine being strained, patient has not passed a stone. Will continue with IV fluids and Flomax, urology consulted, appreciate recommendations. Patient continues to have on and off pain, pending urology consult, will continue with IV fluids. Exam Vital Signs Temp Pulse Resp BP Pulse Ox O2 Del Method 97.0 F 81 16 145/92 H 94 L Room Air 03/29/25 12:00 03/29/25 12:00 03/29/25 12:00 03/29/25 12:00 03/29/25 12:03/29/25 12:00 Narrative Exam Physical Exam General: Awake and in no acute distress. Conversational and non-toxic appearing. HEENT: Normocephalic, atraumatic, mucous membranes moist. Heart: Regular rate and rhythm, no murmurs. Lungs: Clear to auscultation with no wheezing or crackles. Abdomen: Soft, nondistended, nontender, positive bowel sounds. Positive for flank tenderness-left. Neurologic: Alert and oriented x3, no gross neurological deficit, and patient able to move all 4 extremities. Extremities: No edema. Skin: No rash or ecchymoses. Objective Labs 03/29/25 04:56 03/29/25 04:56 Labs: Laboratory Results - last 24 hr 03/29/25 04:56 WBC 8.7 RBC 4.36 L Hgb 13.8 Hct 39.3 L MCV 90 MCH 31.7 MCHC 35.1 RDW Std Deviation 43.0 Plt Count 213 Neut % (Auto) 61 Lymph % (Auto) 26 [place] % (Auto) 8 Eos % (Auto) 4 Baso % (Auto) 1 Neut # (Auto) 5.3 Lymph # (Auto) 2.3 [place] # (Auto) 0.7 Eos # (Auto) 0.3 Baso # (Auto) 0.1 Immature Gran # (Auto) 0.06 H Absolute Nucleated RBC 0.00 Immature Gran % 1 H Nucleated RBC % 0 Sodium 141 Potassium 4.0 Chloride 108 H Carbon Dioxide 23.9 Anion Gap 9 BUN 7 L Creatinine 1.2 D Estim Creat Clear Calc 81.1 eGFR > 60 BUN/Creatinine Ratio 6 L Glucose [address] Glu mg/dL 105 Hemoglobin A1c 5.3 Calculated Osmolality 279 Calcium 8.9 Corrected Calcium 9.1 Phosphorus 2.8 Magnesium 1.8 Total Bilirubin 1.1 AST 30 ALT 35 Alkaline Phosphatase 59 Total Protein 6.6 Albumin 3.8 Globulin 2.8 Albumin/Globulin Ratio 1.4 Triglycerides 132 Cholesterol 140 LDL Cholesterol, Calc 76 HDL Cholesterol 38 L Cholesterol/HDL Ratio 3.7 L Quality Measures Quality Measures none Assessment & Plan Assessment Current Active Medications: Generic Name Dose Route Start Last Admin Trade Name Freq PRN Reason Stop Dose Admin Acetaminophen 650 mg 03/28/25 03:07 Acetaminophen 325 Mg Tablet PO 04/27/25 03:06 Q6H PRN Fever >99.5 Acetaminophen 1,000 mg 03/28/25 03:07 Acetaminophen 325 Mg Tablet PO 04/27/25 03:06 Q6H PRN PAIN SCALE 1-3 (mild Amlodipine Besylate 5 mg 03/29/25 09:00 03/29/25 08:20 Amlodipine Besylate 5 Mg Tablet PO 04/28/25 08:59 5 mg QDAY MAGGIE Administration Sodium Chloride 1,000 mls @ 100 mls/hr 03/29/25 09:45 03/29/25 13:55 Ns IV 04/28/25 09:44 100 mls/hr .Q10H MAGGIE Administration Ketorolac Tromethamine 30 mg 03/29/25 09:26 03/29/25 11:35 Ketorolac Inj 30 Mg/Ml Vial IVP 04/01/25 09:25 30 mg Q6HR PRN Administration PAIN SCALE 4-10(Mod-Sev Morphine Sulfate 2 mg 03/29/25 09:26 Morphine Sulf Inj 10 Mg/Ml Vial IVP 04/02/25 03:06 Q2H PRN BREAKTHROUGH PAIN (SEVERE) Ondansetron HCl 4 mg 03/28/25 03:07 Ondansetron Inj 2 Mg/Ml Inj 2 Ml IVP 04/27/25 03:06 Q6H PRN NAUSEA OR VOMITING Protocol Polyethylene Glycol 34 gm 03/28/25 10:00 03/29/25 08:20 Polyethylene Glycol 17 Gm Packet PO 04/27/25 09:59 34 gm QDAY MAGGIE Administration Tamsulosin HCl 0.4 mg 03/28/25 09:00 03/29/25 08:20 Tamsulosin Hcl 0.4 Mg Capsule PO 04/27/25 08:59 0.4 mg QDAY MAGGIE Administration Plan Mr Han is a 59-year-old male with past medical history of hypertension who presents to the ED due to left lower quadrant pain radiating to the back. Patient admitted for RODNEY. #Acute Kidney injury secondary to #Ureterovesical junction 2 mm renal calculus Patient presented with left lower quadrant pain radiating to the back. Likely in the setting of 2 mm stone with hydronephrosis as per CT scan In the ED patient received 2 L NS bolus, morphine, tamsulosin Plan: ?Continue maintenance IV fluids ?Will hold RUBENS/ARB ?Avoid nephrotoxins ?Renally dose medications ?Continue tamsulosin ?Pain control morphine and Tylenol ?Strain urine for calculus - Consulted urology, appreciate recommendations #Cholelithiasis CT scan shows Cholelithiasis Ordered liver ultrasound shows cholelithiasis, no evidence of cholecystitis. Elevated bilirubin noted, currently patient has no pain - Asymptomatic, will observe for now. #Hypertension #Hyperlipidemia Blood pressure within normal limits, will hold off of antihypertensives for now Patient at home takes losartan and amlodipine. ASCVD risk 6.8%, moderate intensity statin recommended -Patient started on amlodipine 5 mg daily - Will consider discharging on statin. Health Maintenance: Disposition: Pending urology consult. Fluids: NS maintenance fluid Feeding: Low-sodium diet Thrombo prophylaxis: SCDs Gastric Ulcer prophylaxis: Not indicated CODE STATUS: Full code Case discussed with Attending Dr. Mckeon. Emilie Han PGY1 Disclaimer: This note was dictated by speech recognition. Minor errors in oil deliverer may be present due to voice recognition software.
--- NOTE | 2025-03-29 14:30 | PC.NURSE ---
Patient's paperwork faxed to urology clinic, confirmation received. Attempted to call urology clinic multiple times to verify they received the paperwork, no answer. Called Dr Villalta on cell phone, no answer.
[2025-03-30] VITALS: BP 129/88; PULSE 82; RESP 16; TEMP 36.4; O2SAT 99
[2025-03-30 04:00] VITALS: BP 126/85; PULSE 76; RESP 16; TEMP 36.4; O2SAT 94
[2025-03-30 06:19] LABS: Alanine Aminotransferase 40 U/L (10-49); Albumin, Serum 4.1 gm/dL (3.5-5.0); Albumin/Globulin Ratio 1.4 (1.2-2.2); Alkaline Phosphatase 60 U/L (46-116); Anion Gap 6 (7-16); Aspartate Amino Transferase 35 U/L (0-34); BUN/Creatinine Ratio 6 Ratio (12-20); Blood Urea Nitrogen 7 mg/dL (9-23); Calcium 9.1 mg/dL (8.3-10.6); Calcium (Corrected) 9.1 mg/dL (8.5-10.1); Carbon Dioxide 24.7 mMol/L (20.0-31.0); Chloride 108 mMol/L (98-107); Creatinine (Component) 1.1 mg/dL (0.6-1.3); Estimated Creatinine Clearance 88.4 mL/min (>60); Globulin 2.9 gm/dL (2.3-3.5); Glucose 96 mg/dL (74-106); Magnesium 1.9 mg/dL (1.6-2.6); Osmolality,Calculated 275 (275-295); Phosphorous 2.8 mg/dL (2.4-5.1); Sodium 139 mMol/L (136-145); eGFR > 60 See Note
[2025-03-30 08:00] VITALS: BP 132/90; PULSE 72; RESP 18; TEMP 36.2; O2SAT 96
--- NOTE | 2025-03-30 09:04 | PC.SS ---
Follow up note: On IV pain meds. Pending Urology recommendations. Still not passed stone. Pt will return home upon dc.
[2025-03-30 09:14] VITALS: BP 156/99; PULSE 82
[2025-03-30] MEDS: amLODIPine BESYLATE 5 MG TABLET PO (09:14)
[2025-03-30] MEDS: POLYETHYLENE GLYCOL 17 GM PACKET 34 GM PO (09:14)
[2025-03-30] MEDS: TAMSULOSIN HCL 0.4 MG CAPSULE PO (09:15)
[2025-03-30 12:00] VITALS: BP 134/95; PULSE 75; RESP 17; TEMP 36.4; O2SAT 94
--- NOTE | 2025-03-30 12:40 | PC.NURSE ---
Assisted Dr. Poole in speaking with pt and his . Per Dr. Poole, drink lots of water. He explained the stone is too small for surgery right now . Follow up in his office in 3 months. If pain comes back or worsens, go to ER. Strain all urine and if he finds a stone, bring it in to Dr. Poole's office so he can send it off for testing. Pt and his both verbalizes understanding. Per Dr. Poole, pt okay to discharge home today.
--- NOTE | 2025-03-30 13:27 | ESDS_ITS ---
<Statement entered by Prince Mckeon MD - 04/03/25 08:57> I reviewed above note and agree with findings and plans. I have also personally examined the patient with medicine team and went over assessment and plan with medical team including application development intern and resident physician. Planned Discharge Date 03/30/25 DS: Providers Provider Date of admission: 03/28/25 03:07 Primary care physician: Physician No Primary/Family Admitting Provider: Sarahi Bauman MD Attending Provider on Admission: Prince Mckeon MD Consults: 03/28/25 04:53 Referral Respiratory Therapy Routine Comment: 03/29/25 11:13 Consult to Urology Routine Comment: Nephrolithiasis Consulting Provider: Christina Poole Attending Provider on DC: Prince Mckeon MD Discharging Provider: Prince Mckeon MD Anticipated date of discharge: 03/30/25 DS: Diagnosis Problem List Completed Was Problem List Reviewed/Reconciled?: Yes Hospital Course Hospital Course Hospital course: Hospital course: Mr. Han is a 59-year-old male with past medical history of hypertension and hyperlipidemia who presented to [facility] em ergency department on March 28, 2025 with a chief complaint of left lower quadrant pain. CT abdomen pelvis showed 2 mm stone at ureterovesical junction and left hydronephrosis. Patient was started on IV fluids, Flomax and IV pain medication, underlying RODNEY was noted. With the progression of hospital course patient had severe significant pain, urology was consulted for recommendations, with IV fluids and pain management patient's renal function improved, urine was strained, however no stone noted, patient's pain improved next day and he was eventually pain-free for about 24 hours. Further plan is to discharge patient home and follow-up outpatient with urology in 3 months, patient to follow-up with primary care physician in 1 to 2 weeks. Patient is stable for discharge and patient responded well to the hospital treatment. Recommendations: - Tylenol and ibuprofen for pain management - Continue Flomax daily - Continue home blood pressure medications, started on atorvastatin 40 mg daily - Follow-up with urology outpatient in next 3 months - Patient was informed about his diagnosis of cholelithiasis, currently asymptomatic, follow-up patient Discharge diagnosis: #Acute kidney injury secondary to #Ureterovesical junction 2 mm renal calculus #Mild hydronephrosis #Cholelithiasis #Hypertension #Hyperlipidemia Case discussed with Attending Dr. Mckeon. Emilie Han PGY1 Disclaimer: This note was dictated by speech recognition. Minor errors in circus roustabout may be present due to voice recognition software. Status at Discharge Functional status at discharge: independent ambulation Overall status at discharge: patient is progressing back to baseline Time Spent with Patient Time attestation: Total time spent providing and/or coordinating discharge services: Time spent: Greater than 30 minutes Exam Vital Signs Temp Pulse Resp BP Pulse Ox O2 Del Method 97.5 F 75 17 134/95 H 94 L Room Air 03/30/25 12:03/30/25 12:03/30/25 12:00 03/30/25 12:00 03/30/25 12:03/30/25 12:00 Narrative Exam Physical Exam General: Awake and in no acute distress. Conversational and non-toxic appearing. HEENT: Normocephalic, atraumatic, mucous membranes moist. Heart: Regular rate and rhythm, no murmurs. Lungs: Clear to auscultation with no wheezing or crackles. Abdomen: Soft, nondistended, nontender, positive bowel sounds. Neurologic: Alert and oriented x3, no gross neurological deficit, and patient able to move all 4 extremities. Extremities: No edema. Skin: No rash or ecchymoses. Discharge Plan Plan Patient Disposition: HOME (Self Care) Patient condition on transfer: Stable Care Plan Goals: Take Tylenol Extra Strength or ibuprofen for pain control. Take Flomax daily, follow-up with urology outpatient in 1 to 2 weeks Take atorvastatin daily, follow-up with primary care physician outpatient in 1 to 2 weeks Continue all other home medications. You can also follow-up in [email or web address] in 1 to 2 weeks. Call [phone] to make an appointment Address: [facility], [address], [address], [place], [address] Return to ED if symptoms return or worsen. Prescriptions/Referrals Prescriptions/Med Rec: New acetaminophen [Tylenol Extra Strength] 500 mg tablet 1,000 mg PO Q6H PRN (Reason: Pain Scale 1-3 (Mild) 10 Days Qty: 30 0RF tamsulosin [Flomax] 0.4 mg capsule 0.4 mg PO QDAY Qty: 30 0RF ibuprofen 800 mg tablet 800 mg PO Q8H PRN (Reason: pain (scale score 4-10)) 7 Days Qty: 20 0RF atorvastatin 40 mg tablet 40 mg PO QDAY 30 Days Qty: 30 0RF Continued losartan 100 mg tablet 100 mg PO QDAY Patient Comments: take 1 tablet by mouth once daily amlodipine 10 mg tablet 10 mg PO QDAY Patient Comments: take 1 tablet by mouth once daily ergocalciferol (vitamin D2) 1,250 mcg (50,000 unit) capsule 1,250 mcg PO QWEEK Patient Comments: take 1 capsule by mouth every week- QSunday Referrals: Christina Poole MD [Physician] - No Primary/Family,Physician [Primary Care Provider] - Emilie Han MD [Resident] - Patient/Caregiver Discharge Instructions Discharge Activity: activity as tolerated Education Materials: Kidney Stones: Are You at Risk?, Acute Kidney Failure Dc, ED Kidney Stone w/ Colic Print Language: Australian Stand Alone Forms: Macy Award Info., Patient Portal Info Letter, Work/Release Restrictions Discharge Order Discharge Orders: Discharge (Routine); Ordered 03/30/25 Ordered By: Emilie Han Quality Discharge Quality Measures VTE prophylaxis
[2025-03-30 14:15] VITALS: BP 139/89; PULSE 91; RESP 18; TEMP 36.6; O2SAT 97
--- NOTE | 2025-03-30 21:45 | ESCONSULT_ITS ---
RE: KRISHNA MORENO : 1965 DATE OF CONSULTATION: 03/30/2025 CHIEF COMPLAINT: 1. A 2 mm stone left distal ureter with mild hydronephrosis. 2. Acute kidney injury with serum creatinine of 1.9 and BUN 17. 3 on 03/30/2025, BUN is 7 creatinine is 1.1 HISTORY OF PRESENT ILLNESS: This is a 59-year-old gentleman who has past medical history of hypertension. He came to the emergency room due to lower quadrant pain radiating to the back. The pain was colic in nature and intermittent. The patient had never similar symptom before. He has no history of nausea, vomiting, gross hematuria, or high fever. In the emergency room, he had CAT scan with stone protocol. It is reviewed by me. This revealed a 2 mm stone in the left distal ureter at the ureteral vesicle junction with mild hydronephrosis. For the last 24 hours, the patient has been asymptomatic. He has no pain, no nausea or vomiting, no gross hematuria. Past medical history, family history, review of the systems, personal history; please refer to patient's history form dated 03/28/2025 is seen in HPI in EMR. The review of the system, all systems reviewed, normal except as documented. PHYSICAL EXAMINATION: GENERAL: Condition is satisfactory, orientation x3. HEENT: Normocephalic and atraumatic. Eyes: No anemia or jaundice. NECK: Supple. Trachea central. Thyroid is not enlarged. EXTREMITIES: Reveal no edema, cyanosis, or clubbing. VITAL SIGNS: Stable, they are in HPI in EMR. CHEST: Symmetrical. HEART: Regular rate and rhythm. ABDOMEN: Soft, nontender. No masses. Liver, spleen, kidneys not palpable. No CVA tenderness. IMPRESSION: A 2 mm stone right distal ureter with mild hydronephrosis. RECOMMENDATIONS: 1. Plenty of fluid so that he has urinary output of 2400 mL in 24 hours. 2. Strain of the urine. 3. Follow-up appointment in my office in 3 months. 4. Make sure his kidney functions are normal before he is going to be discharged. I have reviewed his BUN is 7 creatinine is 1.1 All above issues were discussed with the patient in great detail. Questions were answered to his satisfaction. He verbalized understanding. DT: 16:17:30 TT: 20:52:00 Ref: [id number] - TID: [id number] MTDD
== END 2025-03-30 14:15 | disposition home or self-care (01) ==
LOC: SERX 21:06 → S3SX 03-28 07:36 → SERHOLD 03-29 07:53
PROVIDERS: Physician Assistant; Student in an Organized Health Care Education/Training Program; Admitting Provider Student in an Organized Health Care Education/Training Program; Emergency Provider Emergency Medicine; Visit Provider Internal Medicine
DX: N17.9 Acute kidney failure, unspecified (principal); N13.2 Hydronephrosis with renal and ureteral calculous obstruction; K80.20 Calculus of gallbladder without cholecystitis without obstruction; K59.00 Constipation, unspecified; I10 Essential (primary) hypertension; E78.5 Hyperlipidemia, unspecified; Z01.810 Encounter for preprocedural cardiovascular examination
CPT/HCPCS: 36415; 74177; 76705; 80053; 80061; 81001; 83036; 83605; 83690; 83735; 84100; 84145; 85025; 93005; 96361; 96374; 96375; 96376; 99285; A4649; G0378; J1885; J2270; J2405; J7030; Q9967; A9270

== ENCOUNTER → 2025-09-19 | Outpatient (CLI) | payer MEDICAID, SELFPAY ==
--- NOTE | 2025-09-19 13:30 | XR_ITS ---
EXAMINATION: PA lateral chest 2 views Technique when upright PA lateral chest 2 views Date and time: September 19, 2025, 1343 hours INDICATIONS: Shortness of breath beginning 2 months ago. FINDINGS: Normal heart size. Lungs are clear. Intact osseous structures IMPRESSION: No active disease
== END | disposition home or self-care (01) ==
DX: R06.02 Shortness of breath (principal)
CPT/HCPCS: 71046